=== PATIENT | male | born 1970 | race Caucasian/White ===

== ENCOUNTER 2021-07-16 07:10 | Outpatient (CLI) | payer BC ==
[~2021-07-16] VITALS: Ht 154.9 cm; Wt 102.0 kg
[2021-07-16] VITALS (11 sets, daily range): BP systolic 99–123; BP diastolic 57–73
[~2021-07-16 07:10] MED LIST: DOXY100T PO; FURO40TA4 PO; LACT20SO PO; PROP10TA PO; SPIR100T4 PO; VITA1CAP5 PO
[2021-07-16] MEDS ORDERED: ALBUMIN HUMAN 25% 50 ML IV ONE (09:00)
[2021-07-16] MEDS ORDERED: ALBUMIN HUMAN 25% 100 ML IV ONE ×2 (09:00→09:15)
[2021-07-16] MEDS ORDERED: ALBUMIN HUMAN 25% 200 ML IV ONE (09:04)
[2021-07-16] MEDS ORDERED: fentaNYL PF VIAL 100 MCG/2 ML VIAL IV ONE (09:45)
[2021-07-16] MEDS ORDERED: MIDAZOLAM HCL/PF 2 MG/2 ML VIAL. IV ONE (09:45)
[2021-07-16] MEDS ORDERED: LIDOCAINE WITH 8.4% SOD BICARB 3 ML DISP.SYRIN. IJ ONE (09:45)
--- NOTE | 2021-07-16 11:17 | RAD ---
Ultrasound-guided paracentesis. 07/16/2021 11:14 AM Indication: Reason: ASCITES / Spl. Instructions: 8.6 L OF FLUID DRAINED / History: Discussion: The risks and benefits of the procedure including but not limited to bleeding, hypotensio n, and infection were discussed the patient. Informed consent was obtained. Ultrasound evaluation was performed demonstrating ascites, with the largest pocket and the right lower quadrant. The right low er quadrant was prepped and draped in sterile fashion. 1% lidocaine without epinephrine was administe red for local anesthesia. Under direct ultrasound guidance a 5 Armenian Yueh needle was advanced into t he peritoneal space. Serous fluid was aspirated. The catheter was connected to suction and approximat mackenzie 9 liters of fluid was removed. The catheter was then removed and manual pressure was held to ach ieve hemostasis. A sterile dressing was applied. Impression: Ultrasound-guided paracentesis with removal of 9 L of ascites Electronically signed by: Marcelino Faustin MD (07/16/2021 11:14 AM) [id number]
--- NOTE | 2021-07-16 12:11 | NUR ---
Pt A&O x4. states his abdomen feels much better. VSS. bandage on abd is clean and dry. set up appointment for next Monday. Called and left message for Dr. Willams's for new order for next Monday . tolerating po well. ambulated to BR w/o problem. d/c instructions given, questions answered. pt ambulated out of unit by self w/o problem.
== END 2021-07-16 10:10 | disposition home or self-care (01) ==
LOC: INTRAD 07:10
PROVIDERS: ATTEND Internal Medicine Gastroenterology
DX: R18.8 Other ascites (principal); Z87.891 Personal history of nicotine dependence; Z72.89 Other problems related to lifestyle; Z98.890 Other specified postprocedural states; Z79.899 Other long term (current) drug therapy
CPT/HCPCS: 49083; P9046

== ENCOUNTER → 2021-07-20 | Outpatient (CLI) | payer BC ==
[2021-07-16 09:55] VITALS: BP 103/65
[~2021-07-20] MED LIST changes: +GADOTERATE 7.5 MMOL/15ML VIAL. IVP ONE
--- NOTE | 2021-07-20 16:47 | RAD ---
EXAMINATION: MRI abdomen with and without IV contrast. INDICATION:50 years, Male, liver cirrhosis. Right hepatic lobe mass seen on CT exam. Further evaluati on. TECHNIQUE: Multiplanar multisequence MRI of the abdomen was performed. COMPARISON: 06/14/2021. FINDINGS: LOWER CHEST: Small bilateral pleural effusions. ABDOMEN: Cirrhotic morphology of the liver with enlarged left and caudate lobes and surface nodularity. No bennie atosis or iron deposition. Redemonstrated ill-defined 2.8 cm masslike focal bulging in subcapsular he patic segment IVb/5 (series 2 image 20). This lesion appears isointense to the liver parenchyma on T1 , T2 and postcontrast enhancement including arterial phase sequence. No discrete contrast washout. Ev aluation of this lesion on DWI/ADC sequences is limited due to Dielectric effect artifact from large abdominal ascites. Gallbladder is contracted with diffuse wall thickening and submucosal edema, likely secondary to cirr hotic status. No biliary ductal dilation. Mild splenomegaly measures up to 13.6 cm in length. No sple jimmy lesion. No adrenal nodule. Pancreas is unremarkable. No hydronephrosis in either kidney. No bowel dilation. Normal caliber abdominal aorta. Mesenteric arteries and vein are patent. Portosyst emic venous collaterals in the upper abdomen with cannulization of umbilical vein. Paraesophageal abbe ices. Nonspecific nonenlarged upper abdominal lymph nodes, likely reactive. MUSCULOSKELETAL: No suspicious osseous lesion. IMPRESSION: 1. Cirrhotic morphology of the liver with stigmata of portal hypertension includes mild splenomegaly, portosystemic venous collaterals and large abdominopelvic ascites. 2. Redemonstrated ill-defined 2.3 cm masslike focal bulging in subcapsular hepatic segment 4B/5, demo nstrates isointense to the liver parenchyma on all sequences including arterial phase sequence. Findi ngs indeterminate, may represent a cirrhotic macronodular versus low-grade hepatocellular carcinoma ( LI RADS 3). Consider correlation with alpha-fetoprotein. Recommend either short-term follow-up in [facility] with MRI abdomen or further evaluation with tissue sampling. 3. Small bilateral pleural effusions. Electronically signed by: Josseline Jc MD (07/20/2021 4:45 PM) [id number]
== END ==
LOC: MRI 09:27
PROVIDERS: ATTEND Internal Medicine Gastroenterology
DX: R16.2 Hepatomegaly with splenomegaly, not elsewhere classified (principal); J90 Pleural effusion, not elsewhere classified; K74.60 Unspecified cirrhosis of liver; K82.0 Obstruction of gallbladder; I85.00 Esophageal varices without bleeding; R93.5 Abnormal findings on diagnostic imaging of other abdominal regions, including retroperitoneum; R18.8 Other ascites
CPT/HCPCS: 74183; A9575

== ENCOUNTER 2021-07-23 08:22 | Outpatient (CLI) | payer BC ==
[2021-07-23] VITALS (8 sets, daily range): BP systolic 95–113; BP diastolic 53–66
[~2021-07-23] VITALS: Ht 180.3 cm; Wt 95.5 kg
[~2021-07-23 08:22] MED LIST changes: -GADOTERATE 7.5 MMOL/15ML VIAL. IVP ONE
[2021-07-23] MEDS ORDERED: ALBUMIN HUMAN 25% 100 ML IV ONE ×4 (09:46→10:10)
--- NOTE | 2021-07-23 10:15 | RAD ---
Ultrasound-guided paracentesis. 07/23/2021 10:12 AM Indication: Ascites Discussion: The risks and benefits of the procedure including but not limited to bleeding, hypotensio n, and infection were discussed the patient. Informed consent was obtained. Ultrasound evaluation was performed demonstrating ascites, with the largest pocket and the right lower quadrant. The right low er quadrant was prepped and draped in sterile fashion. 1% lidocaine without epinephrine was administe red for local anesthesia. Under direct ultrasound guidance a 5 [place] Yueh needle was advanced into t he peritoneal space. Serous fluid was aspirated. The catheter was connected to suction and approximat mackenzie 8 liters of fluid was removed. The catheter was then removed and manual pressure was held to ach ieve hemostasis. A sterile dressing was applied. Impression: Ultrasound-guided paracentesis with removal of 8 L of ascites Electronically signed by: Marcelino Faustin MD (07/23/2021 10:12 AM) [id number]
--- NOTE | 2021-07-23 11:00 | NUR ---
Discharge Note: PAMELA ALMONTE Discharge instructions and discharge home medications reviewed with Patient and a copy given. All questions have been answered and understanding verbalized. The following instructions and handouts were given: paracentesis Discontinued lines and drains: Peripheral IV intact. Patient discharged to Home or Self Care with[facility] Ambulated
== END 2021-07-23 11:05 | disposition home or self-care (01) ==
LOC: INTRAD 08:22
PROVIDERS: ATTEND Internal Medicine Gastroenterology
DX: R18.8 Other ascites (principal); Z87.891 Personal history of nicotine dependence; Z79.899 Other long term (current) drug therapy; Z98.890 Other specified postprocedural states
CPT/HCPCS: 49083; P9046